=== PATIENT | female | born 1975 | race Caucasian/White ===

== ENCOUNTER → 2018-08-22 | Outpatient (CLI) | payer OTHER ==
--- NOTE | 2018-08-22 11:00 | REPMRS ---
Patient History The patient states she has not had a clinical breast exam in over a year. No known family history of cancer. 2D only. denied. Digital Mammo Screening Bilat: August 22, 2018 - Exam #: [id number] Bilateral CC and MLO view(s) were taken. Technologist: Lesvia Vuong, Technologist Prior study comparison: June 07, 2017, bilateral digital mammo screening bilat performed at [facility]. January 21, 2014, digital bilateral screening mammo, performed at [facility]. May 28, 2013, digital bilateral screening mammo, performed at [facility]. FINDINGS: The breast tissue is heterogeneously dense. This may lower the sensitivity of mammography. There is a moderate amount of heterogeneously dense fibroglandular tissue which is fairly symmetric. There is no interval development of dominant mass, architectural distortion, or clustered microcalcification typical of malignancy. There has been no change in the appearance of the mammogram from the prior studies. Assessment: BI-RADS/ACR category 1 mammogram. Negative Mammogram. Recommendation Routine screening mammogram of both breasts in 1 year (for women over age 40). This patient's Lifetime Breast Cancer RIsk is estimated at 7.8 %. This mammogram was interpreted with the aid of an FDA-approved computer-aided dectection system. Electronically Signed By: Zachary Amaro MD 08/22/18 1100
== END ==
LOC: M RAD 09:16
PROVIDERS: ATTEND Family Medicine
DX: Z12.31 Encounter for screening mammogram for malignant neoplasm of breast (principal); N60.31 Fibrosclerosis of right breast; N60.32 Fibrosclerosis of left breast

== ENCOUNTER → 2021-03-09 | Outpatient (CLI) | payer OTHER ==
--- NOTE | 2021-03-09 10:45 | REP ---
INDICATION: M79.672 PAIN IN LEFT FOOT ATTENTION HEEL. COMPARISON: None. TECHNIQUE: Three views FINDINGS: Nondisplaced fracture calcaneal spur. No other abnormalities. Adjacent soft tissue swelling. IMPRESSION: Nondisplaced fracture calcaneal spur. <Electronically signed by Giles Nicole > 03/09/21 1046
== END ==
LOC: M WUC 10:24
PROVIDERS: ATTEND Physician Assistant Medical
DX: M79.672 Pain in left foot (principal)

== ENCOUNTER → 2021-09-14 | Outpatient (CLI) | payer OTHER | LOC: M WHC 13:44 | PROVIDERS: ATTEND Family Medicine | DX: Z12.31 Encounter for screening mammogram for malignant neoplasm of breast (principal) ==